=== PATIENT | female | born 1990 | race Caucasian/White ===

== ENCOUNTER 2017-10-08 09:27 | Emergency (ER) | payer BC ==
[2017-10-08] MEDS ORDERED: Albuterol/Ipratropium NEB.SOL* Albuterol 2.5 MG/Ipratropium 0.5 MG 3 ML INH ONE (09:41)
--- NOTE | 2017-10-08 09:44 | ED ---
Respiratory - HPI Summary HPI Summary: SOB this morning - started w/ tight chest then as she was moving about the house getting ready for work, she developed SOB. [id number] who smokes moved in over the weekend - doesn't smoke in house but in a vestibule of the house and pt reports she's never been exposed to any cigarette smoke. Has asthma and tried ventolin inhaler at home w/o relief but thinks she may have tried to use it too late. She reports she rarely uses this and no h/o hospitalization or steroid use for her asthma. Denies fever, chills, N/V/D, rhinorrhea, ST, coughing, sneezing. LMP last month - due this week. No hormone control but does not feel she' s . - History of Current Complaint Chief Complaint: EDAsthma Stated Complaint: ASTHMA ATTACK Time Seen by Provider: 10/08/17 09:38 Hx Obtained From: Patient Pain Intensity: 0 - Allergy/Home Medications Allergies/Adverse Reactions: Allergies Allergy/AdvReac Type Severity Reaction Status Date / Time No Known Allergies Allergy Verified 01/14/16 08:18 PMH/Surg Hx/FS Hx/Imm Hx Previously Healthy: Yes Endocrine/Hematology History: Denies: Hx Thyroid Disease, Hx Anemia Cardiovascular History: Denies: Hx Congenital Heart Disease Respiratory History: Reports: Hx Asthma Denies: Hx Pulmonary Embolism - Immunization History Immunizations Up to Date: Yes Infectious Disease History: No Infectious Disease History: Denies: Traveled Outside the [place] in Last 30 Days - Family History Known Family History: Positive: Unknown - Social History Occupation: Employed Full-time - [employer] Lives: With Family Alcohol Use: Occasionally - couple of times a month Hx Substance Use: No Substance Use Type: Reports: None Hx Tobacco Use: No - no 2nd hand smoke exposure until this weekend Smoking Status (MU): Never Smoked Tobacco Review of Systems Constitutional: Negative Eyes: Negative ENT: Negative Negative: Chest Pain Positive: Shortness Of Breath. Negative: Cough Gastrointestinal: Negative Positive: no symptoms reported Skin: Negative Neurological: Negative Positive: Anxious All Other Systems Reviewed And Are Negative: Yes Physical Exam Triage Information Reviewed: Yes Vital Signs On Initial Exam: Initial Vitals Temp Pulse Resp BP Pulse Ox 98.7 F 108 24 121/80 94 10/08/17 09:29 10/08/17 09:29 10/08/17 09:29 10/08/17 09:29 10/08/17 09:29 Vital Signs Reviewed: Yes Appearance: Positive: Well-Nourished - pt is breathing labored and cannot complete full sentences but does not appear fatigued Skin: Positive: Warm, Skin Color Reflects Adequate Perfusion, Dry Head/Face: Positive: Normal Head/Face Inspection Eyes: Positive: Normal, EOMI ENT: Positive: Hearing grossly normal, Pharynx normal - mucosa moist Respiratory/Lung Sounds: Positive: Clear to Auscultation, Breath Sounds Present - distant, Unable to speak in full sentences. Negative: Rales, Rhonchi, Stridor , Tracheal Deviation, Wheezes, Fatigue Cardiovascular: Positive: S1, S2. Negative: Murmur, Rub, Leg Edema Left, Leg Edema Right Musculoskeletal: Positive: Normal, Strength/ROM Intact Neurological: Positive: Normal, Sensory/Motor Intact, Alert, Oriented to Person Place, Time, CN Intact II-III Psychiatric: Positive: Normal Diagnostics - Vital Signs Vital Signs Temp Pulse Resp BP Pulse Ox 10/08/17 09:29 98.7 F 108 24 121/80 94 - Laboratory Lab Statement: Any lab studies that have been ordered have been reviewed, and results considered in the medical decision making process. Re-Evaluation - Re-Evaluation First Eval Change: Improved - pt's breath sounds are more apparent and clear s/p duoneb - appears more comfortable, breathing regular rate and reports feeling better "I can get a deep breath now" Disposition - Course Course Of Treatment: Pt presents w/ what appears to be asthma exacerbation. Recovered well w/ duoneb. No further testing or tx at this time as she's low risk for advanced dz. Will use home ventolin q 4-6 hrs PRN and return to ED if danger s/sx present. Pt's has already discussed smoking cessation or at least not near house and no clothes in house after smoking to prevent repeat event. Pt will also avoid potential aerosal triggers. - Diagnoses Provider Diagnoses: Asthma attack Discharge - Discharge Plan Condition: Stable Disposition: HOME Patient Education Materials: Asthma (ED) Forms: *Work Release Referrals: Lavern Pan PA [Physician Managing Partner] - Additional Instructions: Use albuterol inhaler 2 puffs every 4-6 hours for chest tightness, cough, wheezing, shortness of breath. If no relief in 20 minutes, return to ED. Avoid potential triggers such as air fresheners, smoke, candles, scented lotions, perfume, etc. If home is dry, use humidification. Keep temp at 68F or less to prevent dryness but avoid cold air as well to prevent bronchospasm. You reports feeling shaky if you go long periods without eating - follow-up with PCP but in the meantime, try to eat balanced meals with snacks every 4 hours (or sooner if symptoms present). Your random blood glucose was 97 here today.
[2017-10-08 10:51] VITALS: BP 108/69
== END 2017-10-08 10:51 | disposition home or self-care (01) ==
LOC: ED 09:27
DX: J45.901 Unspecified asthma with (acute) exacerbation (principal); Z79.899 Other long term (current) drug therapy
CPT/HCPCS: 94640; 99282; A9270-GY

== ENCOUNTER 2018-05-23 16:08 | Emergency (ER) | payer BC, OTHER ==
[2018-05-23 16:38] VITALS: BP 105/68
[2018-05-23] MEDS ORDERED: Naproxen TAB* 250 MG PO ONE (16:48)
[2018-05-23] MEDS ORDERED: Ketorolac INJ* 60 MG/2 ML VIAL IM ONE (16:50)
--- NOTE | 2018-05-23 16:55 | UC ---
Back Pain HPI - HPI Summary HPI Summary: Patient was lifting a patient at work and has had right sided low back pain that runs to the fron t of the right hip. standing does not cause pain, sitting is painful. she also states that her urine is really dark and wonders if she may have the start of a UTI - History of Current Complaint Chief Complaint: UCBackPain Stated Complaint: BACK PAIN WC Time Seen by Provider: 05/23/18 16:38 Hx Obtained From: Patient Hx Last Menstrual Period: 05/13/18 ?: No Onset/Duration: Sudden Onset, Lasting Days - 3 Timing: Constant Severity Initially: Moderate Severity Currently: Moderate Pain Intensity: 4 Character: Dull, Aching Aggravating Factor(s): Movement Alleviating Factor(s): Rest - Allergies/Home Medications Allergies/Adverse Reactions: Allergies Allergy/AdvReac Type Severity Reaction Status Date / Time No Known Allergies Allergy Verified 05/23/18 16:38 Home Medications: Home Medications Lisdexamfetamine Dimesylate [Vyvanse] 30 mg PO DAILY 05/23/18 [History Confirmed 05/23/18] PMH/Surg Hx/FS Hx/Imm Hx Previously Healthy: Yes - Surgical History Surgical History: None - Family History Known Family History: Negative: Cardiac Disease, Hypertension - Social History Alcohol Use: Occasionally Substance Use Type: None Smoking Status (MU): Never Smoked Tobacco Review of Systems Constitutional: Negative Skin: Negative Eyes: Negative ENT: Negative Respiratory: Negative Cardiovascular: Negative Gastrointestinal: Negative Genitourinary: Negative Motor: Negative Neurovascular: Negative Musculoskeletal: Arthralgia, Decreased ROM, Myalgia Neurological: Negative Psychological: Negative Is Patient Immunocompromised?: No All Other Systems Reviewed And Are Negative: Yes Physical Exam Triage Information Reviewed: Yes Appearance: Well-Appearing, Well-Nourished, Pain Distress Vital Signs: Initial Vital Signs Temp 99.1 F 05/23/18 16:33 Pulse 77 05/23/18 16:33 Resp 16 05/23/18 16:33 BP 105/68 05/23/18 16:33 Pulse Ox 100 05/23/18 16:33 Vital Signs Reviewed: Yes Eye Exam: Normal ENT Exam: Normal Neck exam: Normal Neck: Positive: Supple, Nontender, No Lymphadenopathy Respiratory Exam: Normal Respiratory: Positive: Chest non-tender, Lungs clear, Normal breath sounds Cardiovascular Exam: Normal Cardiovascular: Positive: RRR, No Murmur, Pulses Normal Abdominal Exam: Normal Abdomen Description: Positive: Nontender, No Organomegaly, Soft Bowel Sounds: Positive: Present Musculoskeletal: Positive: Strength Intact, ROM Limited @ - in left lat trunk flexion, trunk ext, pain is centralized over the right SI joint Neurological Exam: Normal Psychological Exam: Normal Skin Exam: Normal Back Pain Course/Dx - Course Course Of Treatment: Hx obtained, exam performed ,meds reviewed, ROM assessed. educated on back exercises, toradol given - Differential Dx/Diagnosis Differential Diagnosis/HQI/PQRI: Arthritis, Cauda Equina Syndrome, Herniated Disc, Strain, Sprain Provider Diagnoses: Sacroilitis Discharge - Sign-Out/Discharge Documenting (check all that apply): Patient Departure All imaging exams completed and their final reports reviewed: Yes - Discharge Plan Condition: Stable Disposition: HOME Patient Education Materials: Sacroiliitis (ED) Referrals: Lavern Pan PA [Primary Care Provider] - Additional Instructions: 1. no heavy lifting for the next 48 hours 2. Continue with NSAID for the next 3-4 days 3. USe the mcKensie exercises 2-3 times a day increase ROM 4. I recommend the Foundation Training daily for strengthening the back 5. you received Toradol at % pm, no NSAIDs until 12am tonight - Billing Disposition and Condition Condition: STABLE Disposition: Home
== END 2018-05-23 17:19 | disposition home or self-care (01) ==
LOC: UCCORT 16:08
DX: M46.1 Sacroiliitis, not elsewhere classified (principal)
CPT/HCPCS: 81003; 96372; 99211; G0463; J1885

== ENCOUNTER 2018-10-01 10:53 | Emergency (ER) | payer BC ==
--- NOTE | 2018-10-01 11:30 | UC ---
FLU HPI - HPI Summary HPI Summary: 28 yo female presents with SOB and cough. She tells me that she has a long history of asthma and chronic exacerbations. About a month ago she began to have episodes of dry coughing and feeling SOB. She tells me that she saw her PCP and was given cefdinir with improvement of her symptoms for 2-3 days, but then returned. She saw her PCP again and was given keflex this time, with improvement for 2-3 days before her symptoms returned again. Most recently over the last 2 days, pt has felt fatigued, feverish, with an increased dry cough, SOB, and increased work of breathing. She has been using her xopenex and albuterol inhalers with no relief. She very rarely smokes marijuana. No recent travel, OBC, hx of blood clots, , or cancer. - History of Current Complaint Stated Complaint: SORE THROAT,BODY ACHES,COUGH,FEVER Time Seen by Provider: 10/01/18 11:29 Hx Obtained From: Patient Hx Last Menstrual Period: uknown, depo Onset/Duration: Gradual Onset Severity Currently: Mild Severity Initially: Moderate Pain Intensity: 7 Pain Scale Used: 0-10 Numeric - Allergy/Home Medications Allergies/Adverse Reactions: Allergies Allergy/AdvReac Type Severity Reaction Status Date / Time No Known Allergies Allergy Verified 10/01/18 11:32 Home Medications: Home Medications Albuterol HFA INHALER* [Ventolin HFA Inhaler*] 2 puff INH Q4H PRN 10/01/18 [ History Confirmed 10/01/18] Levalbuterol HFA INHALER* [Xopenex Hfa Inhaler*] 2 puff INH QID PRN 10/01/18 [ History Confirmed 10/01/18] Levonorgestrel (Iud) [Mirena IUD] 20 mcg IU ONCE 10/01/18 [History Confirmed ] PMH/Surg Hx/FS Hx/Imm Hx - Additional Past Medical History Additional PMH: ADHD Respiratory History: Asthma - Surgical History Surgical History: None - Family History Known Family History: Negative: Cardiac Disease, Hypertension - Social History Occupation: Employed Full-time Lives: With Family Alcohol Use: Rare Substance Use Type: None Smoking Status (MU): Never Smoked Tobacco Review of Systems All Other Systems Reviewed And Are Negative: Yes Constitutional: Positive: Fatigue, Other - Body aches Skin: Positive: Negative Eyes: Positive: Negative ENT: Positive: Negative Respiratory: Positive: Shortness Of Breath, Cough Cardiovascular: Positive: Negative Gastrointestinal: Positive: Negative Neurovascular: Positive: Negative Neurological: Positive: Negative Psychological: Positive: Negative Physical Exam - Summary Physical Exam Summary: GENERAL: Mild resp distress with difficulty completing sentences. Leaning forward with short shallow breaths. SKIN: No rashes, sores, lesions, or open wounds. HEENT: Head: AT/NC Eyes: EOM intact. Conjunctiva clear without inflammation or discharge. Ears: Hearing grossly normal. TMs intact, no bulging, erythema, or edema. Nose: Nasal mucosa pink and moist. NTTP maxillary and frontal sinus. Throat: Posterior oropharynx without exudates, erythema, or tonsillar enlargement. Uvula midline. NECK: Supple. Nontender. No lymphadenopathy. CHEST: Mild wheezing throughout lungs without r/r. Tachypneic. Leaning forward with short shallow breaths. CV: Tachycardic Pulses intact. Cap refill <2seconds NEURO: Alert. PSYCH: Age appropriate behavior. Triage Information Reviewed: Yes Vital Signs: Vital Signs: Temp Pulse Resp BP Pulse Ox 100.3 F 126 34 134/80 100 10/01/18 13:00 10/01/18 13:00 10/01/18 13:00 10/01/18 13:00 10/01/18 13:00 Laboratory Tests 10/01/18 11:42 Influenza A (Rapid) Positive A Vital Signs Reviewed: Yes Flu Course/Dx - Course Course Of Treatment: CXR: IMPRESSION: NO ACTIVE CARDIOPULMONARY DISEASE. Solumedrol, tessalon, and duoneb given in the clinic. After about 25-30min pt had moderate relief of her cough, but continued to be visibly short of breath and increased work of breathing. She was then given a xopenex nebulizer via mask - after about 30 seconds she began to feel dizzy, anxious, and had increased respirations. The nebulizer was stopped and mask removed - she was able to be consoled and her respirations decreased along with work of breathing. This, however, did not last as pt soon thereafter began to have a continued worsening of her breathing. At this time I discussed transfer to the ED for further evaluation and she was agreeable to this. EKG perform shows 123bpm sinus tachycardia with inferior lead t wave inverison as read by Dr. Macdonald. She was given 2L O2 by [place] and transferred to [facility] by ambulance. - Differential Dx/Diagnosis Provider Diagnosis: Asthma, Shortness of breath Discharge - Sign-Out/Discharge Documenting (check all that apply): Patient Departure All imaging exams completed and their final reports reviewed: Yes - Discharge Plan Condition: Stable Disposition: TRANS HIGHER LVL OF CARE FAC Referrals: Sandhya Villela [Primary Care Provider] - - Billing Disposition and Condition Condition: STABLE Disposition: Trans Higher Lvl of Care Fac
[2018-10-01 11:48] LABS: Influenza A Molecular POSITIVE (Negative)
[2018-10-01] MEDS: methylPREDNISolone 125 MG* 2 ML VIAL IM ONE (11:50)
[2018-10-01] MEDS: Benzonatate CAP* 100 MG PO ONE (11:50)
[2018-10-01] MEDS: Albuterol/Ipratropium NEB.SOL* Albuterol 2.5 MG/Ipratropium 0.5 MG 3 ML INH ONE (11:50)
[2018-10-01] MEDS ORDERED: Levalbuterol 0.63MG/3ML NEB* UNIT OF USE INH ONE (12:27)
[2018-10-01] MEDS: Levalbuterol 1.25MG/0.5ML NEB INH ONE (12:34)
[2018-10-01 13:08] VITALS: BP 134/80
== END 2018-10-01 13:05 | disposition short-term general hospital (02) ==
LOC: UCCORT 10:53
DX: J45.909 Unspecified asthma, uncomplicated (principal); R06.02 Shortness of breath; F90.9 Attention-deficit hyperactivity disorder, unspecified type
CPT/HCPCS: 71046; 93005; 96372; 99215; A9270-GY; G0463; J2930

== ENCOUNTER 2018-11-26 16:19 | Emergency (ER) | payer BC ==
[2018-11-26 17:45] VITALS: BP 121/74
--- NOTE | 2018-11-26 18:31 | UC ---
Back Pain HPI - HPI Summary HPI Summary: 28-year-old female presents with sudden onset of sharp lower back pain last night when she was getting into bed. 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 States her primary care provider has ordered an MRI for evaluation of this however she has not had the study completed yet. Reports sharp pain to the lower lumbar back that is nonradiating. States she has taken ibuprofen 2 doses with no improvement in pain. States she has received steroids in the past that have been beneficial for her back pain. Denies fever, chills, abdominal pain, urinary symptoms, weakness, numbness, or tingling of the lower extremities, or loss of bowel or bladder control. - History of Current Complaint Chief Complaint: UCBackPain Stated Complaint: BACK COMPLAINT Time Seen by Provider: 11/26/18 18:26 Hx Obtained From: Patient Hx Last Menstrual Period: iud Pain Intensity: 5 - Allergies/Home Medications Allergies/Adverse Reactions: Allergies Allergy/AdvReac Type Severity Reaction Status Date / Time No Known Allergies Allergy Verified 11/26/18 17:37 Home Medications: Home Medications Dextroamphetamine/Amphetamine [Adderall 5 mg Tablet] 5 mg PO 1400 11/26/18 [ History Confirmed 11/26/18] Ibuprofen TAB* [Advil TAB*] 600 mg PO Q6H PRN 11/26/18 [History Confirmed ] hydrOXYzine HCL TAB* [Atarax 25 MG TAB*] 50 mg PO QID PRN 11/26/18 [History Confirmed 11/26/18] PMH/Surg Hx/FS Hx/Imm Hx Respiratory History: Asthma - Surgical History Surgical History: None - Family History Known Family History: Positive: Non-Contributory - Social History Occupation: Student Lives: With Family Alcohol Use: Occasionally Substance Use Type: None Smoking Status (MU): Never Smoked Tobacco Review of Systems All Other Systems Reviewed And Are Negative: Yes Constitutional: Negative: Fever, Chills Skin: Negative: Rash, Bruising Respiratory: Positive: Negative Cardiovascular: Positive: Negative Gastrointestinal: Negative: Abdominal Pain, Vomiting, Diarrhea, Nausea, Other - bowel incontinence Genitourinary: Negative: Dysuria, Hematuria, Frequency, Urgency, Other - Urinary incontinence Motor: Negative: Weakness Neurovascular: Negative: Decreased Sensation Musculoskeletal: Positive: Other: - See HPI Neurological: Positive: Negative Is Patient Immunocompromised?: No Physical Exam - Summary Physical Exam Summary: GENERAL APPEARANCE: Well developed, well nourished, alert and cooperative adult female who appears uncomfortable and unable to get into a position of comfort. CARDIAC: Normal S1 and S2. No S3, S4 or murmurs. Rhythm is regular. There is no peripheral edema, cyanosis or pallor. Extremities are warm and well perfused. Capillary refill is less than 2 seconds. Peripheral pulses intact. LUNGS: Clear to auscultation without rales, rhonchi, wheezing or diminished breath sounds. ABDOMEN: Positive bowel sounds. Soft, nondistended, nontender. No guarding or rebound. No masses or hepatosplenomegally. MUSKULOSKELETAL: ROM intact to all extremities. No joint erythema or tenderness. Normal muscular development. BACK: Examination of the spine reveals midline lumbar spine tenderness over L4- L5 without stepoff, bilateral lower lumbar paraspinous tenderness with muscular spasm. NEUROLOGICAL: Lower extremity strength and sensation symmetric and intact. Reflexes 2+ throughout. SKIN: Skin normal color, texture and turgor with no lesions or eruptions. Triage Information Reviewed: Yes Vital Signs: Initial Vital Signs Temp 98.4 F 11/26/18 17:41 Pulse 99 11/26/18 17:41 Resp 20 11/26/18 17:41 BP 121/74 11/26/18 17:41 Pulse Ox 100 11/26/18 17:41 Vital Signs Reviewed: Yes Diagnostics - Radiology No standard instances Radiology Interpretation Completed By: ED Physician - No acute process Back Pain Course/Dx - Course Course Of Treatment: 28-year-old female presents with sudden onset of sharp lower back pain last night when she was getting into bed. 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 States her primary care provider has ordered an MRI for evaluation of this however she has not had the study completed yet. Reports sharp pain to the lower lumbar back that is nonradiating. States she has taken ibuprofen 2 doses with no improvement in pain. States she has received steroids in the past that have been beneficial for her back pain. Denies fever, chills, abdominal pain, urinary symptoms, weakness, numbness, or tingling of the lower extremities, or loss of bowel or bladder control. Afebrile. Vital signs stable. Exam was remarkable for midline lumbar spine tenderness over L4-L5 without stepoff, bilateral lower lumbar paraspinous tenderness with muscular spasm. Lower extremity strength and sensation symmetric and intact. Reflexes 2+ throughout. My preliminary reading of the lumbosacral x-ray that was obtained revealed no acute process. Patient was given a dose of prednisone 40 mg by mouth in the clinic. I will continue her 40 mg daily for the next 4 days and provide her with cyclobenzaprine 10 mg TID as needed for severe pain or spasm. Also recommending activity modification and heat therapy. She is to follow-up with her primary care provider in 3-5 days if symptoms do not improve. Despite very guidance and warning symptoms were reviewed with the patient. Verbalizes understanding and agrees plan of care. - Differential Dx/Diagnosis Differential Diagnosis/HQI/PQRI: Cauda Equina Syndrome, Herniated Disc, Strain Provider Diagnosis: Acute low back pain Discharge - Sign-Out/Discharge Documenting (check all that apply): Patient Departure All imaging exams completed and their final reports reviewed: No - Discharge Plan Condition: Stable Disposition: HOME Prescriptions: Cyclobenzaprine TAB* [Flexeril 10 MG TAB*] 10 mg PO TID PRN #15 tab PRN Reason: Spasms predniSONE TAB* [Deltasone 20 MG TAB*] 40 mg PO DAILY #8 tab Patient Education Materials: Acute Low Back Pain (ED) Referrals: Sandhya Villela [Primary Care Provider] - 3 Days Additional Instructions: The x-ray of your spine showed no acute process. Take prednisone 40 mg daily for next 4 days starting tomorrow as we gave you a dose in the clinic today. Take cyclobenzaprine (Flexeril) 10 mg 1 tab 3 times a day as needed for severe pain or spasm. This will cause drowsiness so do not take and drive or operate machinery. Apply heating pad to the affected area for 15-20 minutes several times a day to help relax muscles and relieve pain. Follow-up with your primary care provider in 3-5 days for recheck of symptoms. Seek immediate medical attention in the emergency room if you have severe pain that is not managed with pain medication, he developed weakness, numbness, or tingling anywhere lower extremities, he was controlling her bowel or bladder, or have any worsening of symptoms. - Billing Disposition and Condition Condition: STABLE Disposition: Home
[2018-11-26] MEDS ORDERED: predniSONE TAB* 20 MG PO ONE (18:49)
--- NOTE | 2018-11-27 08:23 | UC ---
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 Course/Dx - Diagnoses Provider Diagnoses: Acute low back pain Discharge - Sign-Out/Discharge Documenting (check all that apply): Patient Departure All imaging exams completed and their final reports reviewed: Yes - Discharge Plan Condition: Stable Disposition: HOME Prescriptions: Cyclobenzaprine TAB* [Flexeril 10 MG TAB*] 10 mg PO TID PRN #15 tab PRN Reason: Spasms predniSONE TAB* [Deltasone 20 MG TAB*] 40 mg PO DAILY #8 tab Patient Education Materials: Acute Low Back Pain (ED) Referrals: Sandhya Villela [Primary Care Provider] - 3 Days Additional Instructions: The x-ray of your spine showed no acute process. Take prednisone 40 mg daily for next 4 days starting tomorrow as we gave you a dose in the clinic today. Take cyclobenzaprine (Flexeril) 10 mg 1 tab 3 times a day as needed for severe pain or spasm. This will cause drowsiness so do not take and drive or operate machinery. Apply heating pad to the affected area for 15-20 minutes several times a day to help relax muscles and relieve pain. Follow-up with your primary care provider in 3-5 days for recheck of symptoms. Seek immediate medical attention in the emergency room if you have severe pain that is not managed with pain medication, he developed weakness, numbness, or tingling anywhere lower extremities, he was controlling her bowel or bladder, or have any worsening of symptoms. - Billing Disposition and Condition Condition: STABLE Disposition: Home
== END 2018-11-26 20:02 | disposition home or self-care (01) ==
LOC: UCCORT 16:19
DX: M54.5 Low back pain (principal); M43.06 Spondylolysis, lumbar region; J45.909 Unspecified asthma, uncomplicated
CPT/HCPCS: 72110; 99212; G0463; J7512

== ENCOUNTER 2019-03-26 09:36 | Emergency (ER) | payer BC ==
[2019-03-26 10:06] VITALS: BP 100/61
--- NOTE | 2019-03-26 10:27 | UC ---
Throat Pain/Nasal Nitin HPI - HPI Summary HPI Summary: Pt presents with c/o sudden onset of fever and ST. Pt was treated for strep two weeks ago for X7 days. Pt was visitng her sister who had hand, foot, mouth disease. Pt denies any blisters in mouth, hands or feet. - History of Current Complaint Chief Complaint: UCGeneralIllness Stated Complaint: RECHECK ST Time Seen by Provider: 03/26/19 10:19 Hx Obtained From: Patient Hx Last Menstrual Period: iud ?: No Onset/Duration: Sudden Onset, Lasting Days, Still Present Severity: Mild Pain Intensity: 3 Cough: None Associated Signs & Symptoms: Positive: Dysphagia, Fever - Epiglottits Risk Factors Epiglottis Risk Factors: Sudden Onset - Allergies/Home Medications Allergies/Adverse Reactions: Allergies Allergy/AdvReac Type Severity Reaction Status Date / Time No Known Allergies Allergy Verified 03/26/19 10:00 Home Medications: Home Medications Atomoxetine HCl [Strattera] 100 mg PO DAILY 03/26/19 [History Confirmed 03/26/19 ] Naproxen TAB* [Naprosyn 250 mg TAB*] 250 mg PO Q8H PRN 03/26/19 [History Confirmed 03/26/19] PMH/Surg Hx/FS Hx/Imm Hx Previously Healthy: Yes - Surgical History Surgical History: None - Family History Known Family History: Positive: Non-Contributory - Social History Occupation: Student Lives: With Family Alcohol Use: Occasionally Substance Use Type: None Smoking Status (MU): Never Smoked Tobacco Have You Smoked in the Last Year: No - Immunization History Vaccination Up to Date: No Review of Systems All Other Systems Reviewed And Are Negative: Yes Constitutional: Positive: Fever, Chills Skin: Positive: Negative Eyes: Positive: Negative ENT: Positive: Sore Throat Respiratory: Positive: Negative Cardiovascular: Positive: Negative Gastrointestinal: Positive: Negative Genitourinary: Positive: Negative Motor: Positive: Negative Neurovascular: Positive: Negative Musculoskeletal: Positive: Negative Neurological: Positive: Negative Psychological: Positive: Negative Is Patient Immunocompromised?: No Physical Exam Triage Information Reviewed: Yes Appearance: Well-Appearing Vital Signs: Initial Vital Signs Temp 98.4 F 03/26/19 10:01 Pulse 124 03/26/19 10:01 Resp 16 03/26/19 10:01 BP 100/61 03/26/19 10:01 Pulse Ox 100 03/26/19 10:01 Vital Signs Reviewed: Yes Eye Exam: Normal ENT: Positive: Pharyngeal erythema Dental Exam: Normal Neck exam: Normal Respiratory Exam: Normal Cardiovascular Exam: Normal Musculoskeletal Exam: Normal Neurological Exam: Normal Psychological Exam: Normal Skin Exam: Normal Throat Pain/Nasal Course/Dx - Differential Dx/Diagnosis Differential Diagnosis/HQI/PQRI: Pharyngitis, Tonsillitis Provider Diagnosis: Sore throat (viral) Discharge - Sign-Out/Discharge Documenting (check all that apply): Patient Departure All imaging exams completed and their final reports reviewed: No Studies - Discharge Plan Condition: Stable Disposition: HOME Patient Education Materials: Tonsillitis (ED), Safe Use of NSAIDs (ED) Referrals: Sandhya Villela [Primary Care Provider] - If Needed - Billing Disposition and Condition Condition: STABLE Disposition: Home
== END 2019-03-26 10:59 | disposition home or self-care (01) ==
LOC: UCCORT 09:36
DX: J02.8 Acute pharyngitis due to other specified organisms (principal)
CPT/HCPCS: 87651; 99211; G0463

== ENCOUNTER 2019-03-29 08:39 | Emergency (ER) | payer BC ==
[2019-03-29] MEDS ORDERED: Ketorolac INJ* 30 MG/ML 1 ML VIAL IV ONE (10:10)
[2019-03-29] MEDS ORDERED: NS 0.9% 1000 ML** 1,000 ML IV ONE (10:10)
[2019-03-29] MEDS ORDERED: Dexamethasone TAB* 4 MG PO ONE (10:27)
[2019-03-29] MEDS ORDERED: Ketorolac TAB * 10 MG TAB PO ONE (10:30)
--- NOTE | 2019-03-29 10:31 | ED ---
Complex/Multi-Sys Presentation - HPI Summary HPI Summary: This patient is a 29 year old F presenting to [facility] with a chief complaint of sore throat since 03/14/19. She went into her PCPs office on 02/12/19, and the rapid strep was negative, however she was later given a call and told she had strep. Pt was on Augmentin for 7 days, and felt better for 4-5 days after. But then the swelling and pain became worse over the weekend (03/27/19). Pt reports the left side of her throat feels worse, post nasal drip, and rapid heartbeat yesterday. Pt has been taking Ibuprofen. Pt frequently has strep, but has no other medical problems. No PMHx of Peritonsillar abscess. Per triage, the patient rates the pain 3/10 in severity, achy in her throat. No ADRIEN or trouble swallowing. - History Of Current Complaint Chief Complaint: EDThroatPain Time Seen by Provider: 03/29/19 09:56 Hx Obtained From: Patient Onset/Duration: Lasting Weeks, Still Present, Worse Since - 03/27/19 Timing: Constant Severity Currently: Mild Severity Initially: Mild Location: Pain At: - throat Aggravating Factor(s): Nothing Alleviating Factor(s): Ibuprofen Associated Signs And Symptoms: Positive: Palpitations, Other - nasal drip, throat pain and swelling - Allergies/Home Medications Allergies/Adverse Reactions: Allergies Allergy/AdvReac Type Severity Reaction Status Date / Time No Known Allergies Allergy Verified 03/29/19 09:08 PMH/Surg Hx/FS Hx/Imm Hx Endocrine/Hematology History: Denies: Hx Thyroid Disease, Hx Anemia Cardiovascular History: Denies: Hx Congenital Heart Disease Respiratory History: Reports: Hx Asthma Denies: Hx Chronic Obstructive Pulmonary Disease (COPD), Hx Pulmonary Embolism Infectious Disease History: No Infectious Disease History: Reports: 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 Denies: Traveled Outside the [place] in Last 30 Days - Family History Known Family History: Positive: None Negative: Hypertension, Diabetes - Social History Occupation: Employed Full-time Alcohol Use: Occasionally Hx Substance Use: No Substance Use Type: Reports: None Hx Tobacco Use: No - no 2nd hand smoke exposure until this weekend Smoking Status (MU): Never Smoked Tobacco Have You Smoked in the Last Year: No Review of Systems ENT: Other - pos - nasal drip Positive: Sore Throat, Other - pos - swelling in throat Positive: Palpitations All Other Systems Reviewed And Are Negative: Yes Physical Exam - Summary Physical Exam Summary: Constitutional: Well-developed, Well-nourished, Alert. (-) Distressed Skin: Warm, Dry HENT: Normocephalic; Atraumatic; Posterior oropharynx erythema, tonsillar hypertrophy, no exudates, + Cervical lymphadenopathy Eyes: Conjunctiva normal Neck: Musculoskeletal ROM normal neck. (-) JVD, (-) Stridor, (-) Nuchal rigidity Cardio: Rhythm regular, rate normal, Heart sounds normal; 2+ radial pulses Pulmonary/Chest wall: Effort normal. (-) Respiratory distress, Abd: Soft, (-) tenderness, ND Musculoskeletal: (-) Edema Neuro: Alert, Oriented x3 Psych: Mood and affect Normal Triage Information Reviewed: Yes Vital Signs On Initial Exam: Initial Vitals Temp Pulse Resp BP Pulse Ox 98.7 F 112 18 119/80 100 03/29/19 08:41 03/29/19 08:41 03/29/19 08:41 03/29/19 08:41 03/29/19 08:41 Vital Signs Reviewed: Yes Diagnostics - Vital Signs Vital Signs Temp Pulse Resp BP Pulse Ox 03/29/19 08:41 98.7 F 112 18 119/80 100 - Laboratory Result Diagrams: 03/29/19 10:27 03/29/19 10:27 Lab Statement: Any lab studies that have been ordered have been reviewed, and results considered in the medical decision making process. - EKG 10:32 Cardiac Rate: NL EKG Rhythm: Sinus Rhythm Summary of EKG Findings: An EKG at 10:32 reveals normal sinus rhythm 92 bpm, nml axis, nml intervals. No STEMI. No acute changes. Re-Evaluation - Re-Evaluation First Eval Re-Evaluation Time: 11:06 Comment: Discussed plan of care with pt Second Eval Re-Evaluation Time: 11:39 Comment: Discussed lab results. TSH normal. Patient to follow up w ENT Complex Multi-Symp Course/Dx Course Of Treatment: 29-year-old female with a history of recurrent strep tonsillitis presents with throat pain. Patient well-appearing, no difficulty in breathing or maintaining secretions, posterior oropharynx with tonsillar hypertrophy and erythema no exudates. Discussed with on-call ENT who agrees to hold antibiotics pending repeat throat culture, well treat with 1 dose of Decadron here. Regarding palpitations, well check labs including electrolytes , CBC and TSH, EKG sinus. - Diagnoses Provider Diagnoses: Acute tonsillitis, Palpitations - Physician Notifications Discussed Care Of Patient With: Cristopher Figueroa Time Discussed With Above Provider: 10:36 Instructed by Provider To: Other - Discussed case with Dr. Figueroa, who agrees with holding off on ABx, and will see pt in office. Discharge - Sign-Out/Discharge Documenting (check all that apply): Patient Departure - Discharge Patient Received Moderate/Deep Sedation with Procedure: No - Discharge Plan Condition: Stable Disposition: HOME Patient Education Materials: Heart Palpitations (ED), Heart Palpitations (DC), Tonsillitis (ED) Referrals: Sandhya Villela [Primary Care Provider] - Cristopher Figueroa MD [Medical Doctor] - 3 Days Additional Instructions: You were seen in the emergency department for tonsillitis. Discussed with our on-call ENT who did not recommend repeating antibiotics, we sent a throat culture which will result in several days. If any studies were not completed at the time of discharge you will be called with the relevant results. Please follow up with your primary care doctor in next 2-3 days and return to emergency department for worsening pain, swallowing or breathing, chest pain or concerning symptoms. - Billing Disposition and Condition Condition: STABLE Disposition: Home - Attestation Statements Document Initiated by Sae: Yes Documenting Scribe: Connie Callejas Provider For Whom Sae is Documenting (Include Credential): Dr. Maris Schmidt MD Scribe Attestation: Connie Tate scribed for Dr. Maris Schmidt MD on 03/29/19 at 1150. Scribe Documentation Reviewed: Yes Provider Attestation: The documentation as recorded by the Connie arriaza accurately reflects the service I personally performed and the decisions made by me, Dr. Maris Schmidt MD Status of Scribe Document: Viewed
[2019-03-29 10:37] LABS: Hematocrit 39 % (35-47); Hemoglobin 13.3 g/dL (12.0-16.0); Mean Corpuscular HGB Conc 34 g/dL (31-36); Mean Corpuscular Hemoglobin 29 pg (27-31); Mean Corpuscular Volume 85 fL (80-97); Mean Platelet Volume 7.3 fL (7.4-10.4); Platelet Count 332 10^3/uL (150-450); Red Blood Count 4.58 10^6 /uL (3.70-4.87); Red Cell Distribution Width 12 % (10-15); White Blood Count 8.2 10^3/uL (3.5-10.8)
[2019-03-29 10:48] LABS: ABS Eosinophils 0.1 10^3/ul (0-0.6); ABS Lymphocytes 1.2 10^3/ul (1.0-4.8); ABS Monocytes 0.6 10^3/ul (0-0.8); ABS Neutrophils 6.3 10^3/ul (1.5-7.7); Eosinophil % 0.6 %; Lymphocyte % 14.5 %
[2019-03-29 11:06] LABS: Albumin 4.3 g/dL (3.2-5.2); Albumin/Globulin Ratio 1.5 (1-3); BUN/Creatinine Ratio 11.5 (8-20); Calcium 9.4 mg/dL (8.6-10.3); EGFR African American 142.4 (>60); EGFR Non-African American 117.7 (>60); Globulin 2.8 g/dL (2-4); Potassium 3.9 mmol/L (3.5-5.0); Total Bilirubin 0.3 mg/dL (0.2-1.0); Total Protein 7.1 g/dL (6.4-8.9)
[2019-03-29 11:47] LABS: TSH (Thyroid Stimulating Horm) 1.38 mcIU/mL (0.34-5.60)
[2019-03-29 11:49] VITALS: BP 134/64
== END 2019-03-29 11:48 | disposition home or self-care (01) ==
LOC: ED 08:39
DX: J03.90 Acute tonsillitis, unspecified (principal); R00.2 Palpitations
CPT/HCPCS: 36415; 80053; 84443; 85025; 86308; 87070; 93005; 99284; J8540

== ENCOUNTER 2019-09-04 05:46 | Emergency (ER) | payer SELFPAY ==
--- NOTE | 2019-09-04 05:52 | ED ---
- HPI Summary HPI Summary: 29 year old female presents with needlestick today. States she was putting the safety up on the heparin needle when she ended up sticking her left thumb. she immediately washed the area. She has no significant medical conditions. tetanus up-to-date see believes. source patient MR#[id number]. 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 - Family History Known Family History: Positive: None Negative: Hypertension, Diabetes - Social History Alcohol Use: Occasionally Hx Substance Use: No Substance Use Type: Reports: None Hx Tobacco Use: No - no 2nd hand smoke exposure until this weekend Smoking Status (MU): Never Smoked Tobacco Have You Smoked in the Last Year: No Review of Systems Negative: Fever Negative: Chest Pain Negative: Shortness Of Breath Skin: Other - needlestick All Other Systems Reviewed And Are Negative: Yes Physical Exam Triage Information Reviewed: Yes Vital Signs Reviewed: Yes Appearance: Positive: Well-Appearing Skin: Positive: Warm, Dry, Other - needlestick to left thumb Head/Face: Positive: Normal Head/Face Inspection Eyes: Positive: Normal, Conjunctiva Clear ENT: Positive: Pharynx normal Respiratory/Lung Sounds: Positive: Clear to Auscultation, Breath Sounds Present Cardiovascular: Positive: Normal, RRR Musculoskeletal: Positive: Normal Neurological: Positive: Normal Psychiatric: Positive: Normal Procedures - Sedation Patient Received Moderate/Deep Sedation with Procedure: No Diagnostics - Laboratory Result Diagrams: 09/04/19 06:19 09/04/19 06:15 Lab Statement: Any lab studies that have been ordered have been reviewed, and results considered in the medical decision making process. Needlestick Course/Dx - Course Course Of Treatment: 29 year old female presents with needlestick today. States she was putting the safety up on the heparin needle when she ended up sticking her left thumb. she immediately washed the area. She has no significant medical conditions. tetanus up-to-date see believes. source patient MR#[id number]. normal physical exam. source patient negative. no hiv ppx needed. patient understand and agrees with plan. - Diagnoses Provider Diagnoses: Needlestick injury accident Discharge ED - Sign-Out/Discharge Documenting (check all that apply): Patient Departure - Discharge Plan Condition: Good Disposition: HOME Referrals: Sandhya Villela [Primary Care Provider] - Additional Instructions: follow up with employee health Return to ED if develop any new or worsening symptoms - Billing Disposition and Condition Condition: GOOD Disposition: Home
[2019-09-04 05:56] VITALS: BP 128/87
[2019-09-04 06:57] LABS: ABS Eosinophils 0.2 10^3/ul (0-0.6); ABS Lymphocytes 2.2 10^3/ul (1.0-4.8); ABS Monocytes 0.7 10^3/ul (0-0.8); ABS Neutrophils 4.9 10^3/ul (1.5-7.7); Eosinophil % 1.9 %; Hematocrit 40 % (35-47); Lymphocyte % 27.2 %; Mean Corpuscular HGB Conc 35 g/dL (31-36); Mean Corpuscular Hemoglobin 29 pg (27-31); Mean Corpuscular Volume 84 fL (80-97); Mean Platelet Volume 8.4 fL (7.4-10.4); Platelet Count 348 10^3/uL (150-450); Red Blood Count 4.76 10^6 /uL (3.70-4.87); Red Cell Distribution Width 13 % (10-15); White Blood Count 7.9 10^3/uL (3.5-10.8)
[2019-09-04 07:03] LABS: Albumin 4.5 g/dL (3.2-5.2); Calcium 9.6 mg/dL (8.6-10.3); Potassium 3.8 mmol/L (3.5-5.0); Total Bilirubin 0.4 mg/dL (0.2-1.0)
[2019-09-04 07:09] LABS: Albumin/Globulin Ratio 1.7 (1-3); EGFR African American 108.8 (>60); EGFR Non-African American 89.9 (>60); Globulin 2.6 g/dL (2-4); Total Protein 7.1 g/dL (6.4-8.9)
[2019-09-04 07:32] LABS: HIV 4th Generation Nonreactive (Nonreactive)
[2019-09-04 11:30] LABS: Hepatitis B Surface Antigen Nonreactive (Nonreactive)
[2019-09-04 11:47] LABS: Hepatitis C Antibody Negative (Negative)
[2019-09-04 16:39] LABS: Hepatitis B Surface Ab Indeterminate (Immune)
== END 2019-09-04 06:21 | disposition home or self-care (01) ==
LOC: ED 05:46
DX: S61.032A Puncture wound without foreign body of left thumb without damage to nail, initial encounter (principal); W46.1XXA Contact with contaminated hypodermic needle, initial encounter; Y93.89 Activity, other specified; Y92.239 Unspecified place in hospital as the place of occurrence of the external cause; Y99.0 Civilian activity done for income or pay; J45.909 Unspecified asthma, uncomplicated
CPT/HCPCS: 36415; 80053; 84702; 85025; 86706; 86803; 87340; 87389; 99282